=== PATIENT | male | born 1950 | race Caucasian/White ===

== ENCOUNTER 2017-05-30 13:45 | Day surgery (SDC) | payer OTHER ==
[~2017-05-30] VITALS: Ht 167.6 cm; Wt 140.6 kg
[~2017-05-30 13:45] MED LIST: ASCORBIC ACID500 M3 PO; COLACE100 MG PO; COZAAR50 MG PO; ENDOCET 5-3251 EACH PO; FEOSOL325 MG PO; FERROUS SULFAT325 MG PO; PROCHLORPERAZIN10 MG PO; SYNTHROID50 MCG PO; VITAMIN B-6100 MG PO; VITAMIN D31000 UNIT PO
[2017-05-30 14:21] VITALS: BP 137/76
[2017-05-30 14:47] LABS: INTER. NORMALIZED RATIO 1.1
[2017-05-30 14:50] LABS: PTT 27.6 SEC (25-37)
[2017-05-30] MEDS ORDERED: HYDROCODON-ACE1 EAC7 PO (18:47)
[2017-05-30] MEDS ORDERED: COLACE100 MG PO (18:47)
[2017-05-30 19:15] VITALS: BP 137/70
[2017-05-30 19:53] VITALS: BP 135/78
== END 2017-05-30 20:00 | disposition home or self-care (01) ==
LOC: SDC 13:45
PROVIDERS: Thoracic Surgery (Cardiothoracic Vascular Surgery)
PROC: 0JPV0XZ Removal of Tunneled Vascular Access Device from Upper Extremity Subcutaneous Tissue and Fascia, Open Approach (ICD-10-PCS; principal; 2017-05-30)
DX: Z45.2 Encounter for adjustment and management of vascular access device (principal); C21.1 Malignant neoplasm of anal canal; I10 Essential (primary) hypertension; E03.9 Hypothyroidism, unspecified; Z92.21 Personal history of antineoplastic chemotherapy; Z87.891 Personal history of nicotine dependence
CPT/HCPCS: 85610; 85730; 93005; J0690; J2250; J2405; J3010

== ENCOUNTER → 2017-10-25 | Outpatient (CLI) | payer OTHER ==
[~2017-10-25] VITALS: Ht 167.6 cm; Wt 140.6 kg
[~2017-10-25] MED LIST changes: +HYDROCODON-ACE1 EAC7 PO; +METFORMIN HCL500 MG PO; +MICROZIDE12.5 M1 PO; -SYNTHROID50 MCG PO; +SYNTHROID75 MCG PO
== END | disposition home or self-care (01) ==
LOC: AMB 13:28
PROVIDERS: Specialist
DX: K63.5 Polyp of colon (principal); Z85.038 Personal history of other malignant neoplasm of large intestine; Z93.3 Colostomy status; K57.50 Diverticulosis of both small and large intestine without perforation or abscess without bleeding; I10 Essential (primary) hypertension; E11.9 Type 2 diabetes mellitus without complications
CPT/HCPCS: 82948; 88305; J2250